=== PATIENT | female | born 1970 | race Two or more races ===

== ENCOUNTER 2017-11-16 10:05 | Outpatient (CLI) | payer OTHER ==
[~2017-11-16 10:05] MED LIST: ALBUTEROL S5 MG/1 ML; BENADRYL50 MG PO; MEDROL4 MG PO; METFORMIN HCL500 MG; SYNTHROID100 MCG
== END 2017-11-16 10:15 | disposition home or self-care (01) ==
LOC: RAD 501 10:05
DX: S82.845A Nondisplaced bimalleolar fracture of left lower leg, initial encounter for closed fracture (principal)

== ENCOUNTER 2017-11-20 11:32 | Outpatient (CLI) | payer OTHER | END 2017-11-20 11:44 | disposition home or self-care (01) | LOC: RAD 501 11:32 | DX: M25.572 Pain in left ankle and joints of left foot (principal) ==

== ENCOUNTER 2017-11-26 15:32 | Outpatient (CLI) | payer OTHER | END 2017-11-26 15:49 | disposition home or self-care (01) | LOC: RAD 501 15:32 | DX: S82.62XA Displaced fracture of lateral malleolus of left fibula, initial encounter for closed fracture (principal) ==

== ENCOUNTER 2018-07-18 20:15 | Emergency (ER) | payer OTHER ==
[~2018-07-18] VITALS: Ht 124.5 cm; Wt 69.4 kg
[2018-07-19] MEDS ORDERED: ZITHROMAX500 MG PO (02:20)
[2018-07-19] MEDS ORDERED: ZYNCOF 20-400120 ML PO (02:20)
[2018-07-19] MEDS ORDERED: SYMBICORT 16010.2 GM IH (02:20)
[2018-07-19] MEDS ORDERED: ALBUTEROL2.5 MG/3 M IH (02:20)
== END 2018-07-19 02:24 | disposition home or self-care (01) ==
LOC: ER 20:15
DX: J45.998 Other asthma (principal)

== ENCOUNTER 2020-05-06 16:37 | Emergency (ER) | payer OTHER ==
[~2020-05-06] VITALS: Ht 149.9 cm; Wt 77.1 kg
[~2020-05-06 16:37] MED LIST changes: +ALBUTEROL2.5 MG/3 M IH; +SYMBICORT 16010.2 GM IH; +ZITHROMAX500 MG PO; +ZYNCOF 20-400120 ML PO
[2020-05-06] MEDS ORDERED: SYNTHROID88 MCG PO (17:09)
[2020-05-06] MEDS ORDERED: METFORMIN HCL500 M1 PO (17:09)
== END 2020-05-06 19:05 | disposition home or self-care (01) ==
LOC: ER 16:37
DX: M62.830 Muscle spasm of back (principal)

== ENCOUNTER 2020-11-15 23:24 | Emergency (ER) | payer OTHER ==
[~2020-11-15] VITALS: Ht 149.9 cm; Wt 74.8 kg
[~2020-11-15 23:24] MED LIST changes: +METFORMIN HCL500 M1 PO; +SYNTHROID88 MCG PO
[2020-11-16] MEDS ORDERED: ZEBUTAL 50-3251 EACH PO (05:33)
== END 2020-11-16 05:42 ==
LOC: ER 23:24
DX: G43.909 Migraine, unspecified, not intractable, without status migrainosus (principal)

== ENCOUNTER 2020-12-18 07:09 | Outpatient (CLI) | payer OTHER ==
[~2020-12-18 07:09] MED LIST changes: +ZEBUTAL 50-3251 EACH PO
== END 2020-12-18 07:18 | disposition home or self-care (01) ==
LOC: MAMO-SONO 07:09
PROVIDERS: ATTEND Obstetrics & Gynecology
DX: N60.11 Diffuse cystic mastopathy of right breast (principal); N60.12 Diffuse cystic mastopathy of left breast; E03.8 Other specified hypothyroidism; E04.2 Nontoxic multinodular goiter; E11.9 Type 2 diabetes mellitus without complications; K76.1 Chronic passive congestion of liver; Z12.31 Encounter for screening mammogram for malignant neoplasm of breast

== ENCOUNTER 2020-12-19 10:44 | Outpatient (CLI) | payer OTHER | END 2020-12-19 11:00 | disposition home or self-care (01) | LOC: MAMO-SONO 10:44 | PROVIDERS: ATTEND Obstetrics & Gynecology | DX: N60.11 Diffuse cystic mastopathy of right breast (principal); N60.12 Diffuse cystic mastopathy of left breast; Z12.31 Encounter for screening mammogram for malignant neoplasm of breast ==

== ENCOUNTER 2021-07-04 07:35 | Emergency (ER) | payer OTHER ==
[~2021-07-04] VITALS: Ht 149.9 cm; Wt 72.6 kg
== END 2021-07-04 12:29 | disposition home or self-care (01) ==
LOC: ER 07:35
DX: U07.1 COVID-19 (principal); Z88.6 Allergy status to analgesic agent; J03.90 Acute tonsillitis, unspecified

== ENCOUNTER 2021-11-29 07:41 | Outpatient (CLI) | payer OTHER | END 2021-11-29 15:01 | disposition home or self-care (01) | LOC: MAMO-SONO 07:41 | PROVIDERS: ATTEND Obstetrics & Gynecology | DX: Z12.31 Encounter for screening mammogram for malignant neoplasm of breast (principal); N60.11 Diffuse cystic mastopathy of right breast; N60.12 Diffuse cystic mastopathy of left breast ==

== ENCOUNTER 2023-09-10 07:48 | Outpatient (CLI) | payer OTHER | END 2023-09-10 07:54 | disposition home or self-care (01) | LOC: SONOGRAMA 07:48 | PROVIDERS: ATTEND Internal Medicine Gastroenterology | DX: R10.9 Unspecified abdominal pain (principal) ==

== ENCOUNTER 2023-12-01 14:21 | Outpatient (CLI) | payer OTHER | END 2023-12-01 14:45 | disposition home or self-care (01) | LOC: SONOGRAMA 14:21 | PROVIDERS: ATTEND Internal Medicine Endocrinology, Diabetes & Metabolism | DX: E04.1 Nontoxic single thyroid nodule (principal) ==

== ENCOUNTER 2024-08-10 08:47 | Outpatient (CLI) | payer OTHER | END 2024-08-10 08:56 | disposition home or self-care (01) | LOC: MAMO-SONO 08:47 | PROVIDERS: ATTEND Obstetrics & Gynecology | DX: N60.11 Diffuse cystic mastopathy of right breast (principal); N60.12 Diffuse cystic mastopathy of left breast; R10.2 Pelvic and perineal pain ==